=== PATIENT | male | born 2000 | race Caucasian/White ===

== ENCOUNTER 2024-04-16 08:02 | Emergency (ER) | payer MEDICAID | END 2024-04-16 09:17 | disposition left against medical advice (07) | LOC: ER 08:03 | DX: R10.84 Generalized abdominal pain (principal); Z53.21 Procedure and treatment not carried out due to patient leaving prior to being seen by health care provider ==

== ENCOUNTER 2025-03-01 16:30 | Emergency (ER) | payer MEDICAID ==
[~2025-03-01] VITALS: Ht 172.7 cm; Wt 80.8 kg
[2025-03-01 16:34] VITALS: TEMP 98.6
[2025-03-01] MEDS: albuterol 2.5 MG/3 ML nebule NEB ONE (16:50)
[2025-03-01 16:51] VITALS: PULSE 106; RESP 22; O2SAT 97
[2025-03-01 16:58] VITALS: PULSE 94; RESP 20; O2SAT 98
[2025-03-01] MEDS: dexamethasone sod phosphate 10mg/ml inj IM ONE (17:01)
[2025-03-01] MEDS: albuterol 2.5 MG/3 ML nebule CONTNEB PRN (17:04)
[2025-03-01 17:05] VITALS: PULSE 110; RESP 20; O2SAT 97
--- NOTE | 2025-03-01 17:17 | Physician Documentation ---
History of Present Illness ~ Chief Complaint: Asthma Stated Complaint: "I CAN'T BREATH AND MY INHALER IS NOT HELPING" Time Seen by MD: 16:39 OK to notify your PCP?: Yes Source: patient Mode of Arrival: POV Exam Limitations: no limitations HPI This is a 24-year-old male who comes in complaining of shortness of breath. The patient has a history of asthma and uses an albuterol inhaler however he states he was had a mild cold with a past couple of days which he was making his asthma symptoms worse and causing his inhaler not to work well. He states he becomes very short of breath with a minor exertion. He denies fever. Medication Reconciliation Allergies: Coded Allergies: No Known Allergies (Unverified , 03/01/25) Physical Exam Vital Signs: Temperature: 98.6, Source: Oral, Heart Rate: 110, Respiratory Rate: 20, BP: 137/99, Pulse Oximetry: 97, Weight: 80.800 Oxygen Flow Rate: 9.0 Pulse Oximetry Reflects: adequate oxygenation General Appearance: alert, WD/WN, no apparent distress Respiratory No accessory muscle use or retractions however the patient does have audible wheezes. He was wheezes in all lung ramos to auscultation. No crackles or rales. Progress Results/Orders Results/Orders Orders - HELLEN PANTOJA Svn Treatment (03/01/25 ) Albuterol 2.5mg/3ml Nebule (Proventil 2. (03/01/25 17:00) * Rt Notification Q1H (03/01/25 16:59) Chest,Single View (03/01/25 17:10) Completed Orders - HELLEN PANTOJA Albuterol 2.5mg/3ml Nebule (Proventil 2. (03/01/25 16:40) Dexamethasone Inj (Decadron 10mg/Ml Inj) (03/01/25 16:40) Chest,Single View (03/01/25 17:10) Medications Received in ER Medications (Trade) Dose Ordered Sig/Steven Route PRN Reason Start Time Stop Time Status Last Admin Dose Admin (Proventil 2.5 MG/3ML nebule) 2.5 mg ONCE ONCE NEB 03/01/25 16:40 03/01/25 16:41 DC 03/01/25 16:50 2.5 MG (Decadron 10mg/ ml inj) 10 mg ONCE ONCE IM 03/01/25 16:40 03/01/25 16:41 DC 03/01/25 17:01 10 MG (Proventil 2.5 MG/3ML nebule) 10 mg Q1H PRN CONTNEB SOB or wheezing 03/01/25 17:00 03/01/25 17:04 10 MG Vital Signs 03/01/25 03/01/25 03/01/25 03/01/25 16:34 16:44 16:51 16:58 Temp 98.6 Pulse 84 106 94 Resp 16 16 22 20 B/P (MAP) 137/99 Pulse Ox 95 97 98 O2 Delivery Room Air* Room Air* O2 Flow Rate 0 0 0 FiO2 21 21 03/01/25 03/01/25 17:05 17:09 Pulse 110 Resp 20 Pulse Ox 97 O2 Flow Rate 9.0 EKG/XRAY/CT/US/VASC/MRI Chest X-Ray : Interpreted By: self Views: 1 VIEW Additional Comments One view chest x-ray interpreted by me: Frontal chest radiograph demonstrates no acute osseous or superficial soft tissue abnormalities. The trachea is midline. The cardiac silhouette and mediastinum are within normal limits. No pneumothorax, pleural effusions, or consolidations. Medical Decision Making Findings The patient received Decadron 10 mg IM and a DuoNeb breathing treatment. After with a breathing treatment he says he felt a little bit better in his air movement has improved however he still has significant expiratory wheezes throughout. I gave the patient a 10 mg continuous albuterol treatment after which he was lungs improved significantly. He was still has a occasional scant wheeze. Chest x-ray was negative. We are going to send the patient home with a prescription for prednisone 60 mg once a day for the next four days and refill his albuterol inhaler if needed. Follow up with the primary care physician for recheck in the next couple of days and return to the ER for any worsening or concerning symptoms. Additional Infomation Asthma exacerbation. Wheezing. Shortness of breath. URI. Viral syndrome. Pneumonia. Departure Disposition: HOME / SELF CARE / HOMELESS Impression: Primary Impression: Asthma exacerbation Discharge Instructions: Asthma, Adult, [id number] Additional Instructions: Continue with the albuterol inhaler as needed and I will prescribe steroids that you can take once a day for the next four days. Follow up with the primary care physician for recheck in the next one or two days and return to the ER for any worsening or concerning symptoms. Referrals: NO PRIMARY CARE PROVIDER (PCP) Prescriptions Prednisone* (Prednisone*) 20 Mg Tablet 3 TAB PO DAILY for 4 Days, #12 TAB Prov: HELLEN PANTOJA 03/01/25 albuterol inhaler (Pro-Air Inhaler) 8.5 Gm Inhaler 2 PUFFS INH Q4HPRN PRN for wheezing for 30 Days, #18 GM Prov: HELLEN PANTOJA 03/01/25 Beclomethasone Dipropionate (Qvar 40 MCG INHALER) 40 Mcg/Actuation Inhaler 2 PUFFS INH BID, #8.7 GM 3 Refills Prov: HELLEN PANTOJA 03/01/25 Signature Scribe Signature: No scribe Attestation: The note accurately reflects work and decisions made by me.Hellen JOSUE 03/01/25 17:50 HELLEN PANTOJA Mar 01, 2025 17:17
--- NOTE | 2025-03-01 17:27 | RADIOLOGY REPORT ---
EXAM: DI CHEST,SINGLE VIEW TECHNIQUE: Single frontal chest radiograph CLINICAL HISTORY: Cough, shortness of breath, wheeze COMPARISON: None Findings/Impression: Frontal chest radiograph demonstrates no acute osseous or superficial soft tissue abnormalities. The trachea is midline. The cardiac silhouette and mediastinum are within normal limits. No pneumothorax, pleural effusions, or consolidations.
[2025-03-01 17:49] VITALS: BP 141/79; PULSE 87; RESP 18; O2SAT 100
[2025-03-01] MEDS ORDERED: ALBU8HFA INH (17:49)
[2025-03-01] MEDS ORDERED: PRED20TA PO (17:49)
[2025-03-01] MEDS ORDERED: BECL7.3A INH (17:49)
== END 2025-03-01 18:12 | disposition home or self-care (01) ==
LOC: ER 16:31
DX: J45.901 Unspecified asthma with (acute) exacerbation (principal)
CPT/HCPCS: 71045; 94644; 96372; 99285; J1100; 94640; 94760; 99283; A7015

== ENCOUNTER 2025-03-02 07:56 | Emergency (ER) | payer MEDICAID ==
[~2025-03-02] VITALS: Ht 172.7 cm; Wt 81.2 kg
[2025-03-02] VITALS (7 sets, daily range): BP systolic 118; BP diastolic 97; PULSE 90–120; RESP 16–20; TEMP 98.4; O2SAT 95–98
[~2025-03-02 07:56] MED LIST: ALBU8HFA INH; BECL7.3A INH; PRED20TA PO
[2025-03-02] MEDS: ipratropium/albuterol 3ml nebule NEB ONE (08:45)
--- NOTE | 2025-03-02 08:52 | Physician Documentation ---
History of Present Illness ~ Chief Complaint: Asthma Stated Complaint: DIFFICULTY BREATHING Time Seen by MD: 08:36 Mode of Arrival: Ambulatory HPI 24-year-old male presenting with acute onset shortness of breath and wheezing. The patient was seen here last night for an asthma exacerbation. At that time he was given dexamethasone as well as a long albuterol nebulizer which made him feel better. He states that he was prescribed medication but was not able to pick them up yet because the pharmacy was closed. He states that overnight his symptoms started worsening again and he had a very difficult night due to excessive coughing and wheezing. He states that he has been taking his albuterol inhaler excessively every couple of hours without much relief. He states that his wheezing has continued and even gotten worse this morning. She denies any fever, chills, shortness of breath or any other associated symptoms. Medication Reconciliation Allergies: Coded Allergies: No Known Allergies (Unverified , 03/02/25) Scheduled Beclomethasone Dipropionate (Qvar 40 MCG INHALER), 2 PUFFS INH BID Prednisone* (Prednisone*), 3 TAB PO DAILY Scheduled PRN albuterol inhaler (Pro-Air Inhaler), 2 PUFFS INH Q4HPRN PRN for wheezing Past Medical History Past Medical History: Asthma Physical Exam Vital Signs: Temperature: 98.4, Source: Oral, Heart Rate: 99, Respiratory Rate: 16, BP: 129/83, Pulse Oximetry: 93, Weight: 81.180 Physical Exam I have reviewed the triage vitals. CONST: Well developed and well nourished. In no acute distress HENT: Head Atraumatic EYES: Pupils are equal, round and reactive to light. Normal conjunctiva NECK: Normal range of motion. Supple. CARDIO: Normal rate and regular rhythm. No murmurs, rubs, or gallops. S1, S2. PULM/CHEST: Extensive inspiratory and expiratory wheezes auscultated bi laterally. ABD: Soft and nontender. Nondistended. Bowel sounds normal. No guarding. : Exam deferred MSK: No edema. No deformity. NEURO: Alert and oriented to person, place and time. Moving all extremities SKIN: Warm and dry. PSYCH: Normal mood and affect. Good eye contact. Progress Results/Orders Results/Orders Orders - GEENA FOFANA MD * Rt Notification Q1H (03/02/25 09:43) Albuterol 2.5mg/3ml Nebule (Proventil 2. (03/02/25 10:15) * Rt Notification Q1H (03/02/25 10:13) Pep With Oscillation (03/02/25 ) Completed Orders - GEENA FOFANA MD Ipratropium/Albuterol Nebule (Ipratrop/A (03/02/25 08:45) Prednisone Tablet (Prednisone Tablet) (03/02/25 08:45) Cbc/Diff (03/02/25 08:44) BMP (03/02/25 08:44) PBNP (03/02/25 08:44) Electrocardiogram (03/02/25 ) Troponin (Single) (03/02/25 08:44) Hs Troponin I W Calculations (03/02/25 08:44) Albuterol 2.5mg/3ml Nebule (Proventil 2. (03/02/25 09:45) Magnesium Sulf-Water 2g/50ml (Magnesium (03/02/25 10:15) Medications Received in ER Medications (Trade) Dose Ordered Sig/Steven Route PRN Reason Start Time Stop Time Status Last Admin Dose Admin (predniSONE tablet) 60 mg ONCE ONCE PO 03/02/25 08:45 03/02/25 08:52 DC 03/02/25 08:55 60 MG (Proventil 2.5 MG/3ML nebule) 5 mg NOW ONCE NEB 03/02/25 09:45 03/02/25 09:48 DC 03/02/25 09:47 5 MG (Proventil 2.5 MG/3ML nebule) 10 mg Q1H PRN CONTNEB SOB or wheezing 03/02/25 10:15 03/02/25 10:30 10 MG Magnesium Sulfate 50 ml @ 25 mls/hr ONCE ONCE IV 03/02/25 10:15 03/02/25 12:14 DC 03/02/25 11:05 25 MLS/HR Vital Signs 03/02/25 03/02/25 03/02/25 03/02/25 08:01 08:25 08:29 09:49 Temp 97.8 98.4 Pulse 107 99 90 Resp 18 28 16 16 B/P (MAP) 127/82 129/83 (98) Pulse Ox 95 93 98 O2 Delivery Room Air* O2 Flow Rate 0 FiO2 21 03/02/25 03/02/25 03/02/25 03/02/25 10:07 10:33 10:33 11:34 Pulse 107 100 120 Resp 20 18 20 Pulse Ox 98 98 98 O2 Delivery Room Air* O2 Flow Rate 0 8.0 FiO2 21 03/02/25 12:42 Pulse 127 Resp 18 B/P (MAP) 130/89 (103) Pulse Ox 95 Laboratory Tests Test 03/02/25 09:02 03/02/25 10:59 White Blood Count 14.1 H Red Blood Count 4.99 Hemoglobin 15.1 Hematocrit 45.8 Mean Corpuscular Volume 91.7 Mean Corpuscular Hemoglobin 30.2 Mean Corpuscular Hemoglobin Concent 32.9 L Red Cell Distribution Width 14.4 Platelet Count 437 Mean Platelet Volume 8.0 Neutrophils (%) (Auto) 84.6 H Lymphocytes (%) (Auto) 6.4 L Monocytes (%) (Auto) 8.7 Eosinophils (%) (Auto) 0.1 Basophils (%) (Auto) 0.2 Neutrophils # (Auto) 11.9 H Lymphocytes # (Auto) 0.9 L Monocytes # (Auto) 1.2 H Eosinophils # (Auto) 0.0 Basophils # (Auto) 0.0 CBC Comment Sodium Level 142 Potassium Level 3.9 Chloride Level 107 Carbon Dioxide Level 24.3 Anion Gap 11 Blood Urea Nitrogen 10 Creatinine 0.83 Estimated GFR/1.73 m2 > 90 BUN/Creatinine Ratio 12.0 Glucose Level 99 Calcium Level 9.3 Pro-B-Type Natriuretic Peptide 44 Albumin 4.1 Chemistry Comments Troponin I High Sensitivity 4 Medical Decision Making Additional Infomation 24-year-old male presenting with an acute asthma exacerbation. Patient however been treated last night and discharged with medications but he was unable to pick him up due to the pharmacy being closed. His symptoms worsened overnight and he presented again today. He was treated here with albuterol nebulizers x2 as well as 60 mg of p.o. prednisone. We did do a lab workup as well as chest x- ray which were both unremarkable. After medication the patient was markedly improved. After medication the patient was markedly improved. He was no longer in any type of respiratory distress and his wheezing had decreased significantly. The patient already has medications prescribed from the night before. I advised him to go directly to the pharmacy and pick these up and take them as prescribed. Advised to monitor for improvement and resolution of his symptoms. Follow up with primary care physician in the next 2-5 days. Return to the ED with any acutely worsening symptoms. Departure Disposition: 01 HOME / SELF CARE / HOMELESS Impression: Primary Impression: Asthma exacerbation Condition: Improved Discharge Instructions: Asthma Attack Prevention, Adult Referrals: NO PRIMARY CARE PROVIDER (PCP) Signature Scribe Signature: 1 Attestation: 1 GEENA FOFANA MD Mar 02, 2025 08:52
[2025-03-02] MEDS: predniSONE 20 mg tablet PO ONE (08:55)
[2025-03-02 09:27] LABS: BASOPHILS % (AUTO) 0.2 % (0-1); EOSINOPHILS % (AUTO) 0.1 % (0-6); HEMATOCRIT 45.8 % (42.0-52.0); HEMOGLOBIN 15.1 g/dl (14.0-17.9); LYMPHOCYTES # (AUTO) 0.9 X10'3 (1.1-4.8); LYMPHOCYTES % (AUTO) 6.4 % (21-51); MEAN CORPUSCULAR HEMOGLOBIN 30.2 PG (27.0-31.0); MEAN CORPUSCULAR HGB CONC 32.9 g/dL (33.0-36.5); MEAN CORPUSCULAR VOLUME 91.7 FL (78-98); MONOCYTES # (AUTO) 1.2 X10'3 (0-0.9); MONOCYTES % (AUTO) 8.7 % (2-12); NEUTROPHILS # (AUTO) 11.9 X10'3 (1.8-7.7); NEUTROPHILS % (AUTO) 84.6 % (42-75); PLATELET COUNT 437 X10'3 (140-440); RED BLOOD COUNT 4.99 X10'6 (4.70-6.10); RED CELL DISTRIBUTION WIDTH 14.4 % (11.5-14.5); WHITE BLOOD COUNT 14.1 X10'3 (4.5-11.0)
[2025-03-02] MEDS: albuterol 2.5 MG/3 ML nebule NEB ONE (09:47)
[2025-03-02 09:51] LABS: ALBUMIN 4.1 G/DL (3.4-5.0); ANION GAP 11 (8-16); BLOOD UREA NITROGEN 10 MG/DL (7-18); CALCIUM 9.3 MG/DL (8.5-10.1); CHLORIDE 107 MMOL/L (99-107); CREATININE 0.83 MG/DL (0.60-1.10); GLUCOSE 99 MG/DL (70-104); POTASSIUM 3.9 MMOL/L (3.5-5.1); PRO BRAIN NATRIURETIC PEPTIDE 44 PG/ML (0-125); SODIUM 142 MMOL/L (135-145); TOTAL CARBON DIOXIDE 24.3 MMOL/L (24-32); eCRCL 132 ML/MIN; eGFR > 90 ML/MIN
[2025-03-02] MEDS: albuterol 2.5 MG/3 ML nebule CONTNEB PRN (10:30)
[2025-03-02] MEDS: magnesium sulf-water 2g/50mL 50 ML IV ONE (11:05)
--- NOTE | 2025-03-02 12:14 | ELECTROCARDIOGRAPH REPORT ---
[facility] Test Date: 2025-03-02 Test Time: 09:56:45 Pat Name: THERESA VEGA Department: EMERGENCY ROOM Patient ID: [facility]-[id number] Room: Gender: M [employer] Assembler: : 2000 Requested By: GEENA FOFANA Order Number: [id number] Reading MD: Dr. David Coates Measurements Intervals Felicity Rate: 98 P: 81 [place]: 131 QRS: 71 QRSD: 107 T: 57 QT: 378 QTc: 483 Interpretive Statements Sinus rhythm RSR' in V1 or V2, right VCD or RVH Borderline prolonged QT interval Baseline wander in lead(s) II,III,aVR,aVL,aVF,V5 Electronically Signed On 03-02-2025 19:02:[address] David Coates Please click the below link to view image of tracing.
== END 2025-03-02 13:27 | disposition home or self-care (01) ==
LOC: ER 07:57
DX: J45.901 Unspecified asthma with (acute) exacerbation (principal)
CPT/HCPCS: 36415; 80048; 83880; 84484; 85025; 93005; 94644; 96365; 96366; 99285; J7512; 94640; 94760; A7015

== ENCOUNTER → 2025-03-13 | Outpatient (CLI) | payer MEDICAID ==
[~2025-03-13] VITALS: Ht 170.2 cm; Wt 74.8 kg
[~2025-03-13] MED LIST changes: -PRED20TA PO
[2025-03-13] MEDS: albuterol 2.5 MG/3 ML nebule NEB ONE (16:11)
[2025-03-13 16:12] VITALS: PULSE 77; RESP 20; O2SAT 98
[2025-03-13 16:29] VITALS: PULSE 72; RESP 16
--- NOTE | 2025-03-18 15:14 | PROCEDURE NOTE - Respiratory ---
Procedure Note-Respiratory Providers to CC Copies To 1: CORRINA RENDON Procedure Name: This is a spirometry study dated March 13, 2025. The spirometry study was performed both before and after bronchodilator medication. Spirometry measurements: There is reduction in both the forced vital capacity and the FEV1. The FEV1 ratio is also substantially reduced. All of the measured flow rates show significant reduction. After bronchodilator was given, the FEV1 and the flow rates show marked improvement. Overall conclusion: This study shows abnormality. There is evidence for moderate to severe obstructive ventilatory defect. The patient shows marked improvement with bronchodilator medication. These findings are consistent with the patient's diagnosis of moderate to severe asthma. Continued use of bronchodilator medication will be necessary for this patient. This patient should avoid marijuana smoking. We have no previous studies for comparison. Close pulmonary follow-up is recommended. POPPY REGAN MD March 18, 2025 15:14
== END | disposition home or self-care (01) ==
LOC: RT 15:31
PROVIDERS: ATTEND Physician Assistant
DX: J45.20 Mild intermittent asthma, uncomplicated (principal)
CPT/HCPCS: 94060; 94760

== ENCOUNTER 2025-09-11 07:06 | Emergency (ER) | payer MEDICAID ==
[~2025-09-11] VITALS: Ht 172.7 cm; Wt 65.0 kg
[~2025-09-11 07:06] MED LIST changes: -ALBU8HFA INH
[2025-09-11 07:14] VITALS: BP 127/98; PULSE 92; TEMP 97.6; O2SAT 98
[2025-09-11 07:30] VITALS: RESP 15
[2025-09-11] MEDS: normal saline 1000ml 1,000 ML IV ONE (07:44)
[2025-09-11] MEDS: ondansetron/PF 4mg/2ml inj IV ONE (07:44)
[2025-09-11] MEDS: haloperidol lactate 5mg/ml inj IM ONE (07:45)
[2025-09-11 07:52] LABS: MEAN PLATELET VOLUME 8.2 FL (7.4-10.4); RED CELL DISTRIBUTION WIDTH 14.3 % (11.5-14.5)
[2025-09-11 08:07] LABS: CREATININE 1.44 MG/DL (0.60-1.10); TOTAL CARBON DIOXIDE 18.9 MMOL/L (24-32); eCRCL 72 ML/MIN; eGFR 60 ML/MIN
--- NOTE | 2025-09-11 09:27 | Physician Documentation ---
History of Present Illness Chief Complaint: Vomiting Stated Complaint: VOMITING Time Seen by MD: 07:29 Mode of Arrival: Ambulatory HPI 24 year old male with abdominal cramping and copious vomiting all morning. Denies fever. Has been diagnosed with cannabinoid hyperemesis syndrome in past. Denies fever, urinary symptoms. Poor historian. Medication Reconciliation Allergies: Coded Allergies: No Known Allergies (Unverified , 09/11/25) Scheduled Beclomethasone Dipropionate (Qvar 40 MCG INHALER), 2 PUFFS INH BID Past Medical History Past Medical History: Asthma Review of Systems All Other Systems at this time: Reviewed and Negative Physical Exam Vital Signs: RN Vital Signs have been reviewed: Yes, Temperature: 97.6, Source: Temporal, Heart Rate: 92, Respiratory Rate: 15, BP: 127/98, Pulse Oximetry: 98, Weight: 65.000 Physical Exam Gen: no distress HEENT: PERRL, EOMI no neck or facial swelling, uvula midline Pulm: normal WOB, no distress Cardiac: deferred Abd: soft, diffusely tender, hyperactive bowel sounds Skin: w/d/i MSK: no deformity Neuro: nonfocal Psych: normal affect Progress Results/Orders Results/Orders Orders - KELLY OSMAN MD Urinalysis, Cult If Indicated (09/11/25 07:12) Drug Screen, Urine (09/11/25 07:30) Completed Orders - KELLY OSMAN MD Cbc/Diff (09/11/25 07:12) BMP (09/11/25 07:12) Lipase (09/11/25 07:12) CMP (09/11/25 07:12) Normal Saline 1000ml (0.9% Sodium Chlori (09/11/25 07:30) Ondansetron Inj. (Zofran 4mg/2ml Vial) (09/11/25 07:30) Haloperidol Lact. (Haldol) (09/11/25 07:35) Hydromorphone 1 Mg/Ml/Pf (Dilaudid Inj.) (09/11/25 08:30) Medications Received in ER Medications (Trade) Dose Ordered Sig/Steven Route PRN Reason Start Time Stop Time Status Last Admin Dose Admin Sodium Chloride 1,000 ml @ 1,000 mls/hr ONCE ONCE IV 09/11/25 07:30 09/11/25 08:29 DC 09/11/25 07:44 1,000 MLS/HR (Zofran 4mg/2ml vial) 4 mg ONCE ONCE IV 09/11/25 07:30 09/11/25 07:31 DC 09/11/25 07:44 4 MG (Haldol) 5 mg ONCE ONCE IM 09/11/25 07:35 09/11/25 07:36 DC 09/11/25 07:45 5 MG Vital Signs 09/11/25 09/11/25 07:14 07:30 Temp 97.6 Pulse 92 Resp 15 15 B/P (MAP) 127/98 Pulse Ox 98 Laboratory Tests Test 09/11/25 07:39 White Blood Count 20.8 H Red Blood Count 5.40 Hemoglobin 16.4 Hematocrit 50.7 Mean Corpuscular Volume 93.9 Mean Corpuscular Hemoglobin 30.3 Mean Corpuscular Hemoglobin Concent 32.3 L Red Cell Distribution Width 14.3 Platelet Count 461 H Mean Platelet Volume 8.2 Neutrophils (%) (Auto) 86.4 H Lymphocytes (%) (Auto) 6.7 L Monocytes (%) (Auto) 6.1 Eosinophils (%) (Auto) 0.5 Basophils (%) (Auto) 0.3 Neutrophils # (Auto) 17.9 H Lymphocytes # (Auto) 1.4 Monocytes # (Auto) 1.3 H Eosinophils # (Auto) 0.1 Basophils # (Auto) 0.1 CBC Comment Sodium Level 140 Potassium Level 3.5 Chloride Level 104 Carbon Dioxide Level 18.9 L Anion Gap 17 H Blood Urea Nitrogen 17 Creatinine 1.44 H Estimated GFR/1.73 m2 60 BUN/Creatinine Ratio 11.8 Glucose Level 137 H Calcium Level 9.6 Total Bilirubin 1.1 H Aspartate Amino Transf (AST/SGOT) 24 Alanine Aminotransferase (ALT/SGPT) 19 Alkaline Phosphatase 69 Total Protein 8.4 H Albumin 4.8 Globulin 3.6 Albumin/Globulin Ratio 1.3 Lipase 34 Chemistry Comments Medical Decision Making Additional information obtaine: N/A Findings 24 year old male, vomiting actively during ED stay. Provided pain and nausea medications, fluids. Prior to completion of workup the patient elected to leave / elope. Differential Dx:Considerations: Other Additional Comments Ddx = viral gastroenteritis, appendicitis, cannabinoid hyperemesis syndrome, gastroparesis, food poisoning Departure Disposition: 07 LEFT AGAINST MEDICAL ADVICE Impression: Primary Impression: Vomiting Referrals: NO PRIMARY CARE PROVIDER (PCP) Signature Scribe Signature: . Attestation: . KELLY OSMAN MD Sep 11, 2025 09:27
== END 2025-09-11 08:46 | disposition left against medical advice (07) ==
LOC: ER 07:07
DX: R11.10 Vomiting, unspecified (principal); J45.909 Unspecified asthma, uncomplicated
CPT/HCPCS: 36415; 80053; 83690; 85025; 96361; 96372; 96374; 99284; J1630; J2405; J7030; 96375